=== PATIENT | male | born 1985 | race African-American/Black ===

== ENCOUNTER 2021-08-07 06:02 | Emergency (ER) | payer SELFPAY ==
[~2021-08-07] VITALS: Ht 180.3 cm; Wt 80.0 kg
[2021-08-07 06:10] VITALS: BP 130/84
[2021-08-07] MEDS ORDERED: PREDNISONE 20MG TABLET PO ONE (06:30)
[2021-08-07] MEDS ORDERED: IPRATROPIUM/ALBUTEROL 0.5-3(2.5)MG/3ML NEB HHN ONE (06:30)
[2021-08-07] MEDS ORDERED: PREDNISONE 20MG TABLET PO NR (07:37)
[2021-08-07] MEDS ORDERED: IPRATROPIUM/ALBUTEROL 0.5-3(2.5)MG/3ML NEB ONE (07:42)
[2021-08-07] MEDS ORDERED: ACETAMINOPHEN 325MG TABLET PO ONE (09:45)
[2021-08-07] MEDS ORDERED: ALBU6.7H9 INH (11:41)
[2021-08-07] MEDS ORDERED: P20 MT (11:41)
== END 2021-08-07 12:01 | disposition home or self-care (01) ==
LOC: ER 06:02
DX: R06.89 Other abnormalities of breathing (principal); J45.901 Unspecified asthma with (acute) exacerbation
CPT/HCPCS: 71045; 73030; 73590; 99284; J7512